=== PATIENT | male | born 1950 | race Two or more races ===

== ENCOUNTER 2018-01-04 02:44 | Emergency (ER) | payer MEDICARE, OTHER ==
[~2018-01-04] VITALS: Ht 170.2 cm; Wt 63.0 kg
[2018-01-04 03:37] LABS: HEMATOCRIT 23.8 % (42.0-52.0); HEMOGLOBIN 8.3 g/dl (14.0-17.9); MEAN CORPUSCULAR HEMOGLOBIN 26.5 PG (27.0-31.0); MEAN CORPUSCULAR HGB CONC 34.6 % (33.0-36.5); MEAN CORPUSCULAR VOLUME 76.5 FL (78-98); MEAN PLATELET VOLUME 9.7 FL (7.4-10.4); PLATELET COUNT 638 X10'3 (140-440); RED BLOOD COUNT 3.12 X10'6 (4.70-6.10); RED CELL DISTRIBUTION WIDTH 26.4 % (11.5-14.5); WHITE BLOOD COUNT 12.9 X10'3 (4.5-11.0)
[2018-01-04] MEDS ORDERED: iohexol 300mg/ml 100ml inj. ONE (03:43)
[2018-01-04 03:48] LABS: INR 1.2 INR; PARTIAL THROMBOPLASTIN TIME 28 SECONDS (22-32); PROTHROMBIN TIME 12.8 SECONDS (9.0-12.0)
[2018-01-04 03:51] LABS: ALANINE AMINOTRANSFERASE 167 U/L (12-78); ALBUMIN 1.8 G/DL (3.4-5.0); ALKALINE PHOSPHATASE 598 IU/L (46-116); ANION GAP 11 (8-16); BILIRUBIN,TOTAL 15.9 MG/DL (0.1-1.0); BLOOD UREA NITROGEN 36 MG/DL (7-18); CALCIUM 8.7 MG/DL (8.5-10.1); CHLORIDE 101 MMOL/L (99-107); ETHANOL < 0.010 GM/DL (0.0-0.010); LIPASE 226 U/L (73-393); MAGNESIUM 2.4 MG/DL (1.5-2.4); SODIUM 134 MMOL/L (135-145); TOTAL CARBON DIOXIDE 21.9 MMOL/L (24-32)
[2018-01-04 03:55] LABS: CREATININE 0.75 MG/DL (0.60-1.10); GLUCOSE 298 MG/DL (70-104); POTASSIUM 4.3 MMOL/L (3.5-5.1); eGFR > 90 ML/MIN
[2018-01-04 03:56] LABS: ALBUMIN/GLOBULIN RATIO 0.4 (1.1-1.5); ASPARTATE AMINO TRANSFERASE 98 U/L (10-37); CREATINE KINASE 20 U/L (39-308); TOTAL PROTEIN 6.2 G/DL (6.4-8.2)
[2018-01-04 04:13] LABS: TOTAL CELLS COUNTED 100
[2018-01-04 04:14] LABS: ANISOCYTOSIS 3+; HYPOCHROMASIA 2+; PLATELET ESTIMATE INCREASED; POLYCHROMASIA 1+
[2018-01-04 04:15] LABS: TARGET CELLS 2+; TEAR DROP CELLS FEW
[2018-01-04] MEDS ORDERED: normal saline 1000ml 1,000 ML IV ONE (05:20)
[2018-01-04 07:40] LABS: CLARITY,URINE CLEAR (Clear); COLOR,URINE ORANGE (Yellow)
[2018-01-04 07:45] LABS: UA COLLECTION TYPE URINAL
[2018-01-04 07:47] LABS: BACTERIA,URINE NONE SEEN /HPF (Neg); MUCUS STRANDS NONE SEEN /LPF (Neg); RBC,URINE NONE SEEN /HPF (0-2); SQUAMOUS EPITHELIAL CELL,UR NONE SEEN /LPF (FEW); WBC,URINE NONE SEEN /HPF (0-4)
[2018-01-04 07:51] LABS: URINE AMPHETAMINE SCREEN NEGATIVE (Neg); URINE BARBITUATE SCREEN NEGATIVE (Neg); URINE BENZODIAZEPINES SCREEN NEGATIVE (Neg); URINE CANNABINOID SCREEN NEGATIVE (Neg); URINE COCAINE SCREEN NEGATIVE (Neg); URINE METHADONE SCREEN NEGATIVE (Neg); URINE OPIATE SCREEN POSITIVE (Neg); URINE PHENCYCLIDINE SCREEN NEGATIVE (Neg)
[2018-01-04 13:14] VITALS: BP 169/63
== END 2018-01-04 18:26 | disposition short-term general hospital (02) ==
LOC: ER 02:46
DX: K83.1 Obstruction of bile duct (principal); C25.7 Malignant neoplasm of other parts of pancreas; C78.7 Secondary malignant neoplasm of liver and intrahepatic bile duct; R74.0 Nonspecific elevation of levels of transaminase and lactic acid dehydrogenase [LDH]; R62.7 Adult failure to thrive; E11.9 Type 2 diabetes mellitus without complications; Z96.89 Presence of other specified functional implants; Z60.2 Problems related to living alone
CPT/HCPCS: 36415; 74177; 80053; 80305; 80320; 81001; 82140; 82550; 82948; 83690; 83735; 84484; 85025; 85610; 85730; 86885; 86900; 86901; 93005; 96360; 99285; J7030; Q9967